=== PATIENT | female | born 1970 | race African-American/Black ===

== ENCOUNTER → 2019-02-28 | Day surgery (SDC) | payer BC ==
--- NOTE | 2019-03-02 17:32 | PATH ---
Cytology Non-Gynecological Report Patient Name: MAX SILVERIO [facility]. Rec. #: [id number] /Age/Gender: 1970 (Age: 49) / F Account: [id number] Location: RADIOLOGY INTER Taken: 02/28/2019 Received: 02/28/2019 Reported: 03/02/2019 Physicians: Mayra Schaeffer M.D. Specimen(s) Received THYROID LEFT LOBE Clinical History Left thyroid nodule Final Diagnosis THYROID, LEFT, FINE NEEDLE ASPIRATION: SATISFACTORY FOR EVALUATION [place] CLASS II: BENIGN SMALL FOLLICULAR CELLS, COLLOID, AND MANY MACROPHAGES PRESENT, CONSISTENT WITH A BENIGN NODULE. Electronically Signed Bhavin Martin M.D. Gross Description Received are eight direct smears, four of which are air-dried and Diff-Quik stained, and four of which are alcohol fixed and Pap stained. Also received is 20 ml of bloody formalin from which one cellblock is prepared.
== END | disposition home or self-care (01) ==
LOC: JRADIR 09:27
PROVIDERS: ATTEND Internal Medicine
PROC: 0G9H3ZX Drainage of Right Thyroid Gland Lobe, Percutaneous Approach, Diagnostic (ICD-10-PCS; principal; 2019-02-28)
DX: E04.1 Nontoxic single thyroid nodule (principal)
CPT/HCPCS: 76942; 88173; 88305-TC